=== PATIENT | male | born 1955 | race Caucasian/White ===

== ENCOUNTER 2019-12-02 14:36 | Outpatient (CLI) | payer BC ==
[2019-12-02 16:01] LABS: Anisocytosis SLIGHT = 6-15 cells (100X) (0-5/hpf); Band 5 % (5-11); Hypochromia MODERATE=16-30 cells (100X) (0-5/hpf); Lymphocytes 24 % (21-51); MDiff Complete? YES; Mean Corpuscular HGB CONC 29.2 g/dL (32.0-36.0); Mean Corpuscular Hemoglobin 20.6 pg (27.0-31.0); Mean Corpuscular Volume 70.4 fL (78.0-98.0); Mean Platelet Volume 6.3 fL (7.4-10.4); Microcytosis MODERATE=15-30 cells (100X) (0-5/hpf); Monocytes 5 % (0-10); Neutrophil 66 % (42-75); Platelet Count 384 thou/uL (130-400); Platelet Morphology Comment Appears Adequate; Red Blood Cell (RBC) Count 3.39 mill/uL (4.70-6.10); White Blood Cell (WBC) Count 10.1 thou/uL (4.8-10.8)
[2019-12-02 16:16] LABS: Potassium 3.8 mmol/L (3.5-5.1); Sodium 133 mmol/L (136-145)
[2019-12-02 16:17] LABS: Anion Gap 17 mmol/L (10-20); BUN (Urea Nitrogen) 46 mg/dL (8.4-25.7); CRP (Inflammatory) 3.23 mg/dL (= or < 0.5); Calc. Creatinine Clearance 0 mL/min (70-130); Calcium 7.4 mg/dL (7.8-10.44); Carbon Dioxide 25 mmol/L (23-31); Chloride 95 mmol/L (98-107); Estimated GFR-MDRD 26; Glucose 171 mg/dL (80-115)
== END 2019-12-02 14:37 | disposition home or self-care (01) ==
LOC: MADLAB 14:36
DX: S21.101A Unspecified open wound of right front wall of thorax without penetration into thoracic cavity, initial encounter (principal); L02.213 Cutaneous abscess of chest wall; L08.9 Local infection of the skin and subcutaneous tissue, unspecified; E08.22 Diabetes mellitus due to underlying condition with diabetic chronic kidney disease
CPT/HCPCS: 80048; 85025; 85652; 86140